=== PATIENT | female | born 1970 | race African-American/Black ===

== ENCOUNTER 2020-08-01 09:05 | Outpatient (CLI) | payer BC | END 2020-08-01 09:06 | disposition home or self-care (01) | LOC: BICRAD 09:05 | PROVIDERS: ATTEND Family Medicine | DX: M25.561 Pain in right knee (principal); M17.11 Unilateral primary osteoarthritis, right knee ==

== ENCOUNTER 2022-02-25 10:55 | Outpatient (CLI) | payer BC | END 2022-02-25 10:56 | disposition home or self-care (01) | LOC: BICMAMMO 10:55 | PROVIDERS: ATTEND Family Medicine | DX: Z12.31 Encounter for screening mammogram for malignant neoplasm of breast (principal); Z80.3 Family history of malignant neoplasm of breast | CPT/HCPCS: 77063; 77067 ==

== ENCOUNTER 2023-03-06 07:48 | Outpatient (CLI) | payer BC | END 2023-03-06 07:49 | disposition home or self-care (01) | LOC: BICMAMMO 07:48 | PROVIDERS: ATTEND Family Medicine | DX: Z12.31 Encounter for screening mammogram for malignant neoplasm of breast (principal); Z80.3 Family history of malignant neoplasm of breast | CPT/HCPCS: 77063; 77067 ==